=== PATIENT | female | born 2000 | race Caucasian/White ===

== ENCOUNTER 2024-09-11 05:20 | Inpatient (IN) | payer BC ==
[2024-09-11] MEDS ORDERED: Ondansetron 4 MG/2 ML SDV IVPUSH PRN (06:52)
[2024-09-11] MEDS ORDERED: Water For Irrigation,Sterile 1,000 ML Container IRR PRN (06:52)
[2024-09-11] MEDS ORDERED: Sodium Chloride 0.9% 20 ML SDV IV PRN (06:52)
[2024-09-11] MEDS ORDERED: Methylergonovine 0.2 MG/1 ML Amp IM PRN (06:52)
[2024-09-11] MEDS ORDERED: Sodium Chloride 0.9% 2.5 ML Syringe FLUSH PRN (06:52)
[2024-09-11] MEDS ORDERED: Terbutaline 1 MG/ML SDV SUBCUT PRN (06:52)
[2024-09-11] MEDS ORDERED: Misoprostol 200 MCG Tab RECTAL PRN ×2 (06:52→17:08)
[2024-09-11] MEDS ORDERED: Sodium Chloride 0.9% 10 ML Syringe FLUSH PRN (06:52)
[2024-09-11] MEDS ORDERED: Misoprostol 200 MCG Tab PO PRN (06:52)
[2024-09-11] MEDS ORDERED: Carboprost Tromethamine 250 MCG/1 mL Vial IM PRN (06:52)
[2024-09-11] MEDS ORDERED: Oxytocin/0.9 % Sodium Chloride 30 UNIT/500 ML BAG IV SCH (07:00)
[2024-09-11 07:07] LABS: HEMATOCRIT 38.3 % (37.0-47.0); HEMOGLOBIN 13.1 g/dL (12.0-16.0); MEAN CORPUSCULAR HEMOGLOBIN 29.6 pg (28.0-32.0); MEAN CORPUSCULAR HGB CONC 34.2 g/dL (32.0-36.0); MEAN CORPUSCULAR VOLUME 86.5 fL (83.0-99.0); MEAN PLATELET VOLUME 10.7 fL (9.4-12.3); PLATELET COUNT,PLT 278 K/uL (150-400); RED BLOOD CELL COUNT 4.43 M/uL (4.10-5.30); WHITE BLOOD CELL COUNT,WBC 8.41 K/uL (3.9-11.3)
[2024-09-11] MEDS: Lactated Ringers 1,000 ML IV SCH (08:04)
[2024-09-11] MEDS: Oxytocin/0.9 % Sodium Chloride 30 UNIT/500 ML BAG ONE (08:05)
[2024-09-11] MEDS: Oxytocin/0.9 % Sodium Chloride 30 UNIT/500 ML BAG IV SCH (08:08)
[2024-09-11] MEDS ORDERED: Phenylephrine HCl In 0.9% NaCl 1 MG/10 ML Syringe IVPUSH PRN (08:53)
[2024-09-11] MEDS ORDERED: ePHEDrine 50 MG/ML SDV IVPUSH PRN (08:53)
[2024-09-11] MEDS ORDERED: dexmedeTOMIDine HCl 200 MCG/2 ML SDV EPIDUR SCH (09:00)
[2024-09-11] MEDS ORDERED: Ropivacaine HCl/PF 400 MG in Premix Bag 1 BAG EPIDUR SCH (09:00)
[2024-09-11] MEDS: Butorphanol 2 MG/ML SDV IVPUSH PRN (15:37)
[2024-09-11] MEDS ORDERED: Docusate Sodium 100 MG Cap PO PRN (17:04)
[2024-09-11] MEDS ORDERED: Ibuprofen 800 MG Tab PO PRN (17:04)
[2024-09-11] MEDS ORDERED: Acetaminophen 500 MG Tab PO PRN (17:04)
[2024-09-11] MEDS ORDERED: Simethicone 80 MG Tab.Chew PO PRN (17:04)
[2024-09-11] MEDS ORDERED: Measles, Mumps & Rubella Vaccine 0.5 ML SDV SUBCUT ONE (17:04)
[2024-09-11] MEDS: Lidocaine 1% 50 ML MDV INJECT PRN (18:23)
[2024-09-11 19:06] LABS: PH,UMBILICAL ARTERIAL 7.231 (7.18-7.38)
[2024-09-11 19:07] LABS: PH,UMBILICAL VENOUS 7.286 (7.25-7.45)
[2024-09-11] MEDS: Nitrofurantoin Monohydrate/Macrocrystalline 100 MG Cap PO SCH (20:26)
[2024-09-11] MEDS: Lanolin 100% Cream 7 GM Tube TOP PRN (21:04)
[2024-09-11] MEDS: Witch Hazel Medicated Pads 40/Jar TOP PRN (21:04)
[2024-09-11] MEDS: Benzocaine/Menthol 20%-0.5% Spray 78 GM Cannister TOP PRN (21:04)
[2024-09-12 05:49] LABS: HEMATOCRIT 37.3 % (37.0-47.0); HEMOGLOBIN 12.5 g/dL (12.0-16.0); MEAN CORPUSCULAR HEMOGLOBIN 29.3 pg (28.0-32.0); MEAN CORPUSCULAR HGB CONC 33.5 g/dL (32.0-36.0); MEAN CORPUSCULAR VOLUME 87.6 fL (83.0-99.0); MEAN PLATELET VOLUME 10.3 fL (9.4-12.3); PLATELET COUNT,PLT 257 K/uL (150-400); RED BLOOD CELL COUNT 4.26 M/uL (4.10-5.30); WHITE BLOOD CELL COUNT,WBC 15.59 K/uL (3.9-11.3)
== END 2024-09-13 12:28 | disposition home or self-care (01) | DRG 560 ==
LOC: MW.OB 05:20 → OBSVTOIN 18:12 → MW.OB 22:02
PROVIDERS: ADMIT Obstetrics & Gynecology; ATTEND Obstetrics & Gynecology
PROC: 10E0XZZ Delivery of Products of Conception, External Approach (ICD-10-PCS; principal; 2024-09-11)
PROC: 0HQ9XZZ Repair Perineum Skin, External Approach (ICD-10-PCS; 2024-09-11)
PROC: 10907ZC Drainage of Amniotic Fluid, Therapeutic from Products of Conception, Via Natural or Artificial Opening (ICD-10-PCS; 2024-09-11)
PROC: 3E033VJ Introduction of Other Hormone into Peripheral Vein, Percutaneous Approach (ICD-10-PCS; 2024-09-11)
DX: O48.0 Post-term pregnancy (principal); Z37.0 Single live birth; O70.0 First degree perineal laceration during delivery; O77.0 Labor and delivery complicated by meconium in amniotic fluid; Z3A.40 40 weeks gestation of pregnancy
CPT/HCPCS: 36415; 59025; 59409; 82803; 85027; 86592; 86850; 86900; 86901; A9270-GY; J0595; J2003; J2590; J7120